=== PATIENT | male | born 1965 | race African-American/Black ===

== ENCOUNTER 2016-12-27 03:10 | Emergency (ER) | payer BC ==
[~2016-12-27] VITALS: Ht 180.3 cm; Wt 100.0 kg
[~2016-12-27 03:10] MED LIST: IBUP-232 PO; ROBIDM5S PO
[2016-12-27 03:12] VITALS: BP 152/95; PULSE 80; RESP 16; TEMP 97.8; O2SAT 98
[2016-12-27] MEDS ORDERED: TRAM50TA PO (04:50)
[2016-12-27 04:52] VITALS: BP 151/97
[2016-12-27] MEDS ORDERED: PERC5TAB12 PO (05:15)
[2016-12-27] MEDS ORDERED: oxyCODONE/ACETAMINOPHEN 5 MG/325 MG TAB PO ONE (05:15)
[2016-12-27] MEDS ORDERED: NAPR500 PO (05:15)
--- NOTE | 2016-12-27 05:19 | PD ---
HPI Chief Complaint: Injury Time Seen by Provider: 05:02 Travel History International Travel<30 days: No Contact w/Intl Traveler<30days: No Traveled to known affect area: No History of Present Illness HPI 51-year-old male who presents to emergency with complaints of left-sided knee pain for the past few weeks. He did follow-up with his primary care doctor last week and was told that he had arthritis to his left knee. Patient reports that his knee still hurts him and feels swollen. Patient with no fevers or chills, denies any injury to his left knee. PFSH Past Medical History Diminished Hearing: No Integumentary: Yes (PSORIASIS) Immunizations Current: Yes Tetanus Vaccination: < 5 Years Influenza Vaccination: No Past Surgical History Abdominal Surgery: Yes (hernia repair) Social History Alcohol Use: Yes (mostly weekends) Tobacco Use: No (never) Substance Use: No Allergies-Medications (Allergen,Severity, Reaction): Coded Allergies: Penicillin (Verified Allergy, Mild, fever/hives/welts, 12/27/16) Reported Meds & Prescriptions Reported Meds & Active Scripts Active Percocet (Oxycodone-Acetaminophen) 5-325 mg Tab 1 Tab PO Q6H PRN Naprosyn (Naproxen) 500 Mg Tab 500 Mg PO BID Reported Tramadol (Tramadol HCl) 50 Mg Tab 50 Mg PO Q6H PRN Review of Systems General / Constitutional: No: Fever Eyes: No: Visual changes HENT: No: Headaches Cardiovascular: No: Chest Pain or Discomfort Respiratory: No: Shortness of Breath Gastrointestinal: No: Abdominal Pain Genitourinary: No: Dysuria Musculoskeletal: Positive: Edema (left knee), Pain (left knee) Skin: No Rash Neurologic: No: Weakness Psychiatric: No: Depression Endocrine: No: Polydipsia Hematologic/Lymphatic: No: Easy Bruising Physical Exam Narrative GENERAL: nad, nontoxic SKIN: Focused skin assessment warm/dry. HEAD: Atraumatic. Normocephalic. EYES: Pupils equal and round. No scleral icterus. No injection or drainage. ENT: No nasal bleeding or discharge. Mucous membranes pink and moist. NECK: Trachea midline. No JVD. CARDIOVASCULAR: Regular rate and rhythm. No murmur appreciated. RESPIRATORY: No accessory muscle use. Clear to auscultation. Breath sounds equal bilaterally. GASTROINTESTINAL: Abdomen soft, non-tender, nondistended. Hepatic and splenic margins not palpable. MUSCULOSKELETAL: No obvious deformities. No clubbing. No cyanosis. mild effusion to left knee, no redness or erythema, no signs of infection, pulses intact, neurovascularly intact; RLE: normal exam NEUROLOGICAL: Awake and alert. No obvious cranial nerve deficits. Motor grossly within normal limits. Normal speech. PSYCHIATRIC: Appropriate mood and affect; insight and judgment normal. Data Data Last Documented VS Vital Signs Date Time Temp Pulse Resp B/P Pulse Ox O2 Delivery O2 Flow Rate FiO2 12/27/16 04:52 151/97 12/27/16 04:50 71 20 98 12/27/16 03:12 97.8 Orders Kevin Bandage (12/27/16 05:06) Oxycodone-Acetamin 5-325 Mg (Percocet (12/27/16 05:15) Ice/Cold Pack (12/27/16 05:06) MDM Medical Decision Making Medical Screen Exam Complete: Yes Emergency Medical Condition: Yes Interpretation(s) Vital Signs Date Time Temp Pulse Resp B/P Pulse Ox O2 Delivery O2 Flow Rate FiO2 12/27/16 04:52 151/97 12/27/16 04:50 71 20 98 12/27/16 03:12 97.8 80 16 152/95 98 Differential Diagnosis Differential includes arthritis, knee effusion, gout, septic bursitis though unlikely Narrative Course 51-year-old male who presents to emergency with complaints of left-sided knee pain for the past few weeks. He did follow-up with his primary care doctor last week and was told that he had arthritis to his left knee. Patient reports that his knee still hurts him and feels swollen. Patient with no fevers or chills, denies any injury to his left knee. On exam, patient appears to have an effusion to his left knee. There are no signs of infection/redness or warmth. He did have an xray of his knee performed by his pcp last week which showed arthritis. Denies any new injuries/ traumas/fall. Plan to treat with NSAIDS. Encouraged ice, rest and elevation. Patient follow up with orthopedic surgery return to emergency with his needed. Patient understands that he should not drive or operate heavy machinery while taking narcotic pain medications. Diagnosis Primary Impression: Knee effusion, left Additional Impression: Arthritis of knee, left Referrals: Macho Terry MD Patient Instructions: General Instructions, Narcotic given in the ED Additional Instructions: Please follow-up with primary care doctor in 2-3 days Please follow up with orthopedic surgery as soon as possible Do not drive or operate heavy machinery while taking narcotic pain medications. Return to emergency if symptoms worsen or progress Return to emergency room as needed Ice and elevate knee when at rest Med/Other Pt SpecificInfo: Prescription(s) given Scripts Oxycodone-Acetaminophen (Percocet)5-325 mg Tab1 Tab PO Q6H PRN (PAIN) #7 TAB Ref 0 Prov:Vikki Rogers DO 12/27/16 Naproxen (Naprosyn)500 Mg [id number] Mg PO BID #30 TAB Ref 0 Prov:Vikki Rogers DO 12/27/16 Disposition: 01 DISCHARGE HOME Condition: Stable Vikki Rogers DO Dec 27, 2016 05:19
== END 2016-12-27 05:51 | disposition home or self-care (01) ==
LOC: NEPC 03:10
DX: M25.461 Effusion, right knee (principal); M17.12 Unilateral primary osteoarthritis, left knee
CPT/HCPCS: 99283

== ENCOUNTER 2017-03-10 09:36 | Emergency (ER) | payer BC ==
[~2017-03-10] VITALS: Ht 180.3 cm; Wt 100.0 kg
[~2017-03-10 09:36] MED LIST changes: -IBUP-232 PO; +NAPR500 PO; +PERC5TAB12 PO; -ROBIDM5S PO; +TRAM50TA PO
[2017-03-10 09:38] VITALS: BP 135/91; PULSE 62; RESP 18; TEMP 98.8; O2SAT 98
--- NOTE | 2017-03-10 09:55 | PD ---
HPI Chief Complaint: Pain: Acute or Chronic Time Seen by Provider: 09:48 Travel History International Travel<30 days: No Contact w/Intl Traveler<30days: No Traveled to known affect area: No History of Present Illness HPI 51-year-old male with history of osteoarthritis presents to emergency department for evaluation of left knee pain with some moderate swelling. Patient states he noticed this worsening this morning. He has had this in the past and it resolved with NSAID therapy. He took one Advil this morning and it seemed to help some. Pain is an aching, constant pain. It was worse when he woke up this morning than it is now. Denies any injury. No fever chills. No other symptoms to report. History Past Medical Histgory Medical History: Denies Significant Hx Social History Alcohol Use: Yes (mostly weekends) Tobacco Use: No (never) Allergies-Medications (Allergen,Severity, Reaction): Coded Allergies: penicillin G (Unverified Allergy, Mild, fever/hives/welts, 03/10/17) Reported Meds & Prescriptions Reported Meds & Active Scripts Active Percocet (Oxycodone-Acetaminophen) 5-325 mg Tab 1 Tab PO Q6H PRN Naprosyn (Naproxen) 500 Mg Tab 500 Mg PO BID Reported Tramadol (Tramadol HCl) 50 Mg Tab 50 Mg PO Q6H PRN Review of Systems Except as stated in HPI: all other systems reviewed are Neg Physical Exam Narrative GENERAL: Well-nourished, well-developed male patient with an antalgic gait and in no acute distress. SKIN: Focused skin assessment warm/dry. HEAD: Normocephalic. EYES: No scleral icterus. No injection or drainage. NECK: Supple, trachea midline. No JVD or lymphadenopathy. CARDIOVASCULAR: Regular rate and rhythm without murmurs, gallops, or rubs. RESPIRATORY: Breath sounds equal bilaterally. No accessory muscle use. MUSCULOSKELETAL: No cyanosis. Very small palpable prepatellar effusion of the left knee. No erythema. No significant edema. Patient has full flexion- extension of the left knee. Distal pulses are palpable. Cap refill is within normal limits. BACK: Nontender without obvious deformity. No CVA tenderness. Data Data Last Documented VS Vital Signs Date Time Temp Pulse Resp B/P (MAP) Pulse Ox O2 Delivery O2 Flow Rate FiO2 03/10/17 09:38 98.8 62 18 135/91 (625) 98 Room Air MDM Medical Screen Exam Complete: Yes Emergency Medical Condition: No Differential Diagnosis L knee pain; osteoarthritis Narrative Course 51-year-old male presents to the emergency department for evaluation left knee pain and swelling. The knee is not significantly swollen. There is a palpable prepatellar effusion. The knee is not warm to touch. There are no limitations range of motion. With history of osteoarthritis and this happening in the past with also reported improving throughout the day, this is consistent with osteoarthritic pain. Patient has been sent home and I have encouraged him to take these as directed. This time there are no urgent or emergent needs medical intervention identified. A medical screening exam was performed: At the time of evaluation the presenting medical condition was determined not to be of an emergent nature. The patient was given the option of receiving additional care, but declined. Patient was given options for additional community resources from which to obtain care. The Patient Has Been advised to seek medical attention for their presenting complaint. The patient has been advised to return to the ER at any time if an emergent condition develops. Primary Impression: Encounter for medical screening examination Condition: Peyton Fry Mar 10, 2017 09:55
== END 2017-03-10 10:57 | disposition left against medical advice (07) ==
LOC: NEPK 09:36
DX: M25.562 Pain in left knee (principal)
CPT/HCPCS: 99281

== ENCOUNTER 2017-07-05 19:26 | Emergency (ER) | payer BC ==
[~2017-07-05] VITALS: Ht 180.3 cm; Wt 100.0 kg
[2017-07-05 19:27] VITALS: BP 143/79; PULSE 114; RESP 18; TEMP 100.8; O2SAT 97
[2017-07-05] MEDS ORDERED: SODIUM CHLORIDE 0.9% FLUSH 10 ML FLUSH IV FLUSH PRN (22:15)
[2017-07-05] MEDS ORDERED: ACETAMINOPHEN 325 MG TAB PO ONE (22:15)
[2017-07-05] MEDS ORDERED: SODIUM CHLOR 0.9% 1000 ML INJ 1,000 ML IV SCH (22:15)
--- NOTE | 2017-07-05 22:19 | PD ---
HPI Chief Complaint: Cold / Flu Symptoms Time Seen by Provider: 22:10 Travel History International Travel<30 days: No Contact w/Intl Traveler<30days: No Traveled to known affect area: No History of Present Illness HPI 52-year-old male here for evaluation of fever, cough, generalized malaise, sore throat, posterior headache. Symptoms started this morning. Cough is nonproductive. He took ibuprofen at around 6:30 PM today. He denies vomiting or diarrhea. No abdominal pain. PFSH Past Medical History Medical History: Denies Significant Hx Diminished Hearing: No Integumentary: Yes (PSORIASIS) Immunizations Current: Yes Past Surgical History Abdominal Surgery: Yes (hernia repair) Social History Alcohol Use: Yes (mostly weekends) Tobacco Use: No (never) Substance Use: No Allergies-Medications (Allergen,Severity, Reaction): Coded Allergies: penicillin G (Unverified Allergy, Mild, fever/hives/welts, 07/05/17) Reported Meds & Prescriptions Reported Meds & Active Scripts Active Percocet (Oxycodone-Acetaminophen) 5-325 mg Tab 1 Tab PO Q6H PRN Naprosyn (Naproxen) 500 Mg Tab 500 Mg PO BID Reported Tramadol (Tramadol HCl) 50 Mg Tab 50 Mg PO Q6H PRN Review of Systems Except as stated in HPI: all other systems reviewed are Neg Physical Exam Narrative GENERAL: Well-developed, well-nourished, comfortable, appears ill, no apparent distress. SKIN: Focused skin assessment warm/dry. No rash. HEAD: Atraumatic. Normocephalic. EYES: Pupils equal and round. No scleral icterus. No injection or drainage. ENT: No nasal bleeding or discharge. Mucous membranes pink and moist. NECK: Trachea midline. No JVD. No nuchal rigidity. CARDIOVASCULAR: Tachycardic, rate 110, regular. RESPIRATORY: No accessory muscle use. Clear to auscultation. Breath sounds equal bilaterally. GASTROINTESTINAL: Abdomen soft, non-tender, nondistended. MUSCULOSKELETAL: No obvious deformities. No clubbing. No cyanosis. No edema. NEUROLOGICAL: Awake and alert. No obvious cranial nerve deficits. Motor grossly within normal limits. Normal speech. PSYCHIATRIC: Appropriate mood and affect; insight and judgment normal. Data Data Last Documented VS Vital Signs Date Time Temp Pulse Resp B/P (MAP) Pulse Ox O2 Delivery O2 Flow Rate FiO2 1/28/18 23:37 98 Room Air 07/05/17 19:27 100.8 114 18 Orders Orders Complete Blood Count With Diff (07/05/17 22:15) Comprehensive Metabolic Panel (07/05/17 22:15) Prothrombin Time / Inr (Pt) (07/05/17 22:15) Act Partial Throm Time (Ptt) (07/05/17 22:15) Urinalysis - C+S If Indicated (07/05/17 22:15) Iv Access Insert/Monitor (07/05/17 22:15) Ecg Monitoring (07/05/17 22:15) Oximetry (07/05/17 22:15) Sodium Chlor 0.9% 1000 Ml Inj (Ns 1000 M (07/05/17 22:15) Sodium Chloride 0.9% Flush (Ns Flush) (07/05/17 22:15) Influenzae A/B Antigen (07/05/17 22:15) Acetaminophen (Tylenol) (07/05/17 22:15) Group A Rapid Strep Screen (07/05/17 22:18) Chest, Single Ap (07/05/17 ) Oseltamivir (Tamiflu) (07/05/17 23:15) Strep Culture (Group A) (07/05/17 22:23) Labs Laboratory Tests Test 07/05/17 22:30 White Blood Count 4.7 TH/MM3 Red Blood Count 4.50 MIL/MM3 Hemoglobin 12.9 GM/DL Hematocrit 38.4 % Mean Corpuscular Volume 85.3 FL Mean Corpuscular Hemoglobin 28.7 PG Mean Corpuscular Hemoglobin Concent 33.6 % Red Cell Distribution Width 14.5 % Platelet Count 183 TH/MM3 Mean Platelet Volume 8.6 FL Neutrophils (%) (Auto) 71.1 % Lymphocytes (%) (Auto) 14.5 % Monocytes (%) (Auto) 12.7 % Eosinophils (%) (Auto) 1.2 % Basophils (%) (Auto) 0.5 % Neutrophils # (Auto) 3.4 TH/MM3 Lymphocytes # (Auto) 0.7 TH/MM3 Monocytes # (Auto) 0.6 TH/MM3 Eosinophils # (Auto) 0.1 TH/MM3 Basophils # (Auto) 0.0 TH/MM3 CBC Comment DIFF FINAL Differential Comment Prothrombin Time 11.2 SEC Prothromb Time International Ratio 1.1 RATIO Activated Partial Thromboplast Time 26.3 SEC Blood Urea Nitrogen 11 MG/DL Creatinine 1.31 MG/DL Random Glucose 102 MG/DL Total Protein 7.5 GM/DL Albumin 3.8 GM/DL Calcium Level 8.8 MG/DL Alkaline Phosphatase 63 U/L Aspartate Amino Transf (AST/SGOT) 31 U/L Alanine Aminotransferase (ALT/SGPT) 44 U/L Total Bilirubin 0.5 MG/DL Sodium Level 138 MEQ/L Potassium Level 3.7 MEQ/L Chloride Level 103 MEQ/L Carbon Dioxide Level 27.4 MEQ/L Anion Gap 8 MEQ/L Estimat Glomerular Filtration Rate 70 ML/MIN [facility] Medical Decision Making Medical Screen Exam Complete: Yes Emergency Medical Condition: Yes Differential Diagnosis Influenza, URI, viral illness, strep pharyngitis, pneumonia, bronchitis Narrative Course Initial vital signs show heart rate 114, blood pressure 143/79, pulse ox 97% on room air, oral temp of 100.8F. Patient was given Tylenol, liter of normal saline IV, and repeat vital signs show heart rate 76 with an oral temp of 98.8F. CBC is essentially unremarkable. CMP is remarkable for creatinine 1.31, GFR 70, unknown baseline, otherwise unremarkable. Influenza is negative. Chest x-ray shows no acute disease. Patient was made aware of all findings. He is resting comfortably. Even though his flu swab was negative, his symptoms are consistent with the flu and he will be started on Tamiflu. He was advised to follow-up with a primary care physician this week. He was informed on when to return to the emergency department. He verbalizes understanding and agreement with plan. Diagnosis Primary Impression: Influenza-like illness Referrals: [facility] 3 days Additional Instructions: Follow-up with a primary care physician this week. Stay hydrated with plenty of fluids. Keep fever under control by alternating between Tylenol and ibuprofen every 3-4 hours as discussed. Return to the emergency department for worsening symptoms or any other concerns. Scripts Oseltamivir (Tamiflu) 75 Mg Cap 75 MG PO BID for Mgmt Viral Infection for 5 Days, #10 CAP 0 Refills Prov: Donal Jackson MD 07/05/17 Disposition: 01 DISCHARGE HOME Condition: Stable Donal Jackson MD Jul 05, 2017 22:19
[2017-07-05 22:53] LABS: AUTOMATED NEUTROPHIL # 3.4 TH/MM3 (1.8-7.7); BASOPHIL % 0.5 % (0.0-2.0); EOSINOPHIL # 0.1 TH/MM3 (0-0.4); EOSINOPHIL % 1.2 % (0.0-4.0); HEMATOCRIT 38.4 % (39.0-51.0); HEMOGLOBIN 12.9 GM/DL (13.0-17.0); LYMPH % 14.5 % (9.0-44.0); LYMPHOCYTE # 0.7 TH/MM3 (1.0-4.8); MEAN CELL VOLUME 85.3 FL (80.0-100.0); MEAN CORPUSCULAR HEMOGLOBIN 28.7 PG (27.0-34.0); MEAN CORPUSCULAR HGB CONC 33.6 % (32.0-36.0); MEAN PLATELET VOLUME 8.6 FL (7.0-11.0); MONO % 12.7 % (0.0-8.0); MONOCYTE # 0.6 TH/MM3 (0-0.9); NEUT % 71.1 % (16.0-70.0); PLATELET COUNT 183 TH/MM3 (150-450); RED CELL DISTRIBUTION WIDTH 14.5 % (11.6-17.2); WHITE BLOOD COUNT 4.7 TH/MM3 (4.0-11.0)
[2017-07-05 23:02] LABS: INTERNATIONAL NORMALIZED RATIO 1.1 RATIO; PROTHROMBIN TIME - PATIENT 11.2 SEC (9.8-11.6)
[2017-07-05 23:09] LABS: ALBUMIN 3.8 GM/DL (3.4-5.0); AST (GOT) 31 U/L (15-37); BICARBONATE 27.4 MEQ/L (21.0-32.0); BLOOD UREA NITROGEN 11 MG/DL (7-18); CALCIUM 8.8 MG/DL (8.5-10.1); CHLORIDE 103 MEQ/L (98-107); CREATININE 1.31 MG/DL (0.60-1.30); GLOMERULAR FILTRATION RATE 70 ML/MIN (>89); GLUCOSE,RANDOM 102 MG/DL (74-106); SODIUM (NA) 138 MEQ/L (136-145)
[2017-07-05 23:10] LABS: ALT (GPT) 44 U/L (12-78)
[2017-07-05 23:12] LABS: ALKALINE PHOSPHATASE 63 U/L (45-117); TOTAL BILIRUBIN ADULT 0.5 MG/DL (0.2-1.0); TOTAL PROTEIN 7.5 GM/DL (6.4-8.2)
[2017-07-05] MEDS ORDERED: OSELTAMIVIR PHOSPHATE 75 MG CAP PO ONE (23:15)
--- NOTE | 2017-07-05 23:24 | RADRPT ---
EXAM DATE/TIME: 07/05/2017 23:02 [facility] COMPARISON: No previous studies available for comparison. INDICATIONS : Cough, sore throat, and weakness since this morning. MEDICAL HISTORY : None. SURGICAL HISTORY : None. ENCOUNTER: Initial ACUITY: 1 day PAIN SCORE: 8/10 LOCATION: Bilateral chest FINDINGS: A single view of the chest demonstrates the lungs to be symmetrically aerated without evidence of mas s, infiltrate or effusion. The cardiomediastinal contours are unremarkable. Osseous structures are intact. CONCLUSION: No acute disease. Fab Aguilar MD on July 05, 2017 at 23:21 Board Certified Radiologist. This report was verified electronically.
[2017-07-05 23:37] VITALS: O2SAT 98
[2017-07-05 23:40] VITALS: PULSE 76; RESP 16; TEMP 98.8; O2SAT 98
[2017-07-05] MEDS ORDERED: OSEL75 PO (23:42)
== END 2017-07-05 23:55 | disposition home or self-care (01) ==
LOC: NEPD 19:26
DX: J11.1 Influenza due to unidentified influenza virus with other respiratory manifestations (principal); R53.1 Weakness
CPT/HCPCS: 71045; 80053; 85025; 85610; 85730; 87081; 87804; 87880; 96360; 99284; J7030

== ENCOUNTER 2017-07-07 06:36 | Emergency (ER) | payer BC ==
[~2017-07-07] VITALS: Ht 180.3 cm; Wt 100.0 kg
[~2017-07-07 06:36] MED LIST changes: +OSEL75 PO
[2017-07-07 06:39] VITALS: BP 140/83; PULSE 84; RESP 16; TEMP 101.8; O2SAT 95
--- NOTE | 2017-07-07 07:10 | PD ---
HPI Chief Complaint: Cold / Flu Symptoms Time Seen by Provider: 07:06 Travel History International Travel<30 days: No Contact w/Intl Traveler<30days: No Traveled to known affect area: No History of Present Illness HPI 52-year-old male with history of fever, body ache and pain. Patient's temperature was 101.5 at triage. He says he took ibuprofen at 3 in the morning. Patient was in the emergency room 2 days ago for the exact symptoms and he was given Tamiflu even though his influenza was negative. Patient says his throat hurts too. No history of vomiting or diarrhea. Patient is not a smoker and he is otherwise a healthy person. PFSH Past Medical History Narrative Medical List of his past medical, surgical, social and family history is reviewed from the nursing note. Diminished Hearing: No Integumentary: Yes (PSORIASIS) Immunizations Current: Yes Past Surgical History Abdominal Surgery: Yes (hernia repair) Social History Alcohol Use: Yes (mostly weekends) Tobacco Use: No (never) Substance Use: No Allergies-Medications (Allergen,Severity, Reaction): Coded Allergies: penicillin G (Verified Allergy, Severe, fever/hives/welts, 07/07/17) Comments List of his allergies reviewed from the nursing note. Reported Meds & Prescriptions Reported Meds & Active Scripts Active Zithromax Z-Edward (Azithromycin) 250 Mg Dspk 250 Mg PO DIRECTED 500 MG (2 tabs) day 1, then 1 tab days 2-5. Tamiflu (Oseltamivir Phosphate) 75 Mg Cap 75 Mg PO BID 5 Days Percocet (Oxycodone-Acetaminophen) 5-325 mg Tab 1 Tab PO Q6H PRN Naprosyn (Naproxen) 500 Mg Tab 500 Mg PO BID Reported Tramadol (Tramadol HCl) 50 Mg Tab 50 Mg PO Q6H PRN Narrative Medication List of his home medications reviewed from the nursing note. Review of Systems Except as stated in HPI: all other systems reviewed are Neg General / Constitutional: Positive: Fever, Chills HENT: Positive: Sore Throat Respiratory: Positive: Cough Musculoskeletal: Positive: Myalgias Physical Exam Narrative GENERAL: Awake, alert, moderate distress SKIN: Focused skin assessment warm/dry. HEAD: Atraumatic. Normocephalic. EYES: Pupils equal and round. No scleral icterus. No injection or drainage. ENT: No nasal bleeding or discharge. Mucous membranes pink and moist. Pharynx is erythematous with no exudates NECK: Trachea midline. No JVD. CARDIOVASCULAR: Regular rate and rhythm. No murmur appreciated. RESPIRATORY: No accessory muscle use. Clear to auscultation. Breath sounds equal bilaterally. GASTROINTESTINAL: Abdomen soft, non-tender, nondistended. Hepatic and splenic margins not palpable. MUSCULOSKELETAL: No obvious deformities. No clubbing. No cyanosis. No edema. NEUROLOGICAL: Awake and alert. No obvious cranial nerve deficits. Motor grossly within normal limits. Normal speech. PSYCHIATRIC: Appropriate mood and affect; insight and judgment normal. Data Data Last Documented VS Vital Signs Date Time Temp Pulse Resp B/P (MAP) Pulse Ox O2 Delivery O2 Flow Rate FiO2 07/07/17 08:40 98.4 78 16 124/81 (95) 99 07/07/17 07:00 Room Air Orders Orders Acetaminophen (Tylenol) (07/07/17 07:15) Dexamethasone (Decadron) (07/07/17 07:15) Group A Rapid Strep Screen (07/07/17 07:15) Chest, Pa & Lat (07/07/17 ) Strep Culture (Group A) (07/07/17 07:10) Ed Discharge Order (07/07/17 08:21) MDM Medical Decision Making Medical Screen Exam Complete: Yes Emergency Medical Condition: Yes Medical Record Reviewed: Yes Differential Diagnosis Strep throat, viral illness, pneumonia Narrative Course A 20 9 AM strep throat is negative and chest x-ray shows some atelectasis. Given patient's symptoms I have decided to send him home on a Z-Edward. He was given Tylenol for his fever here and dexamethasone for his throat swelling. Procedures EKG Prior to Arrival: No Diagnosis Primary Impression: Viral illness Additional Impression: Atypical pneumonia Referrals: Primary Care Physician Departure Forms: Tests/Procedures, Work Release Enter return to work date: Jul 09, 2017 Additional Instructions: Please return to the ER if the condition worsens or any other new concerns. Take the medication as per the prescription direction. Drink lots of fluids. Take Tylenol/Motrin/Advil/ibuprofen for fever and/or pain. Med/Other Pt SpecificInfo: Prescription(s) given Scripts Azithromycin (Zithromax Z-Edward) 250 Mg Dspk 250 MG PO DIRECTED for Infection, #1 DSPK 0 Refills 500 MG (2 tabs) day 1, then 1 tab days 2-5. Prov: Jamey Gonzales MD 07/07/17 Disposition: 01 DISCHARGE HOME Condition: Stable Jamey Gonzales MD Jul 07, 2017 07:10
[2017-07-07] MEDS ORDERED: DEXAMETHASONE 6 MG TAB PO ONE (07:15)
[2017-07-07] MEDS ORDERED: ACETAMINOPHEN 325 MG TAB PO ONE (07:15)
--- NOTE | 2017-07-07 08:08 | RADRPT ---
EXAM DATE/TIME: 07/07/2017 07:52 [facility] COMPARISON: No previous studies available for comparison. INDICATIONS : Cough. Sore throat. Body aches. MEDICAL HISTORY : Psoriasis. SURGICAL HISTORY : None. ENCOUNTER: Subsequent ACUITY: 3 days PAIN SCORE: 2/10 LOCATION: back, legs FINDINGS: PA and lateral views of the chest demonstrate minimal right basilar subsegmental atelectasis without evidence of mass, infiltrate or effusion. The cardiomediastinal contours are unremarkable. Osseous structures are intact. CONCLUSION: Minimal right basilar subsegmental atelectasis. Ted Horan MD on July 07, 2017 at 8:05 Board Certified Radiologist. This report was verified electronically.
[2017-07-07] MEDS ORDERED: ZITHTAB PO (08:15)
[2017-07-07 08:40] VITALS: BP 124/81; TEMP 98.4
== END 2017-07-07 10:06 | disposition home or self-care (01) ==
LOC: NEPC 06:36
DX: B34.9 Viral infection, unspecified (principal); J18.9 Pneumonia, unspecified organism
CPT/HCPCS: 71046; 87081; 87880; 99284; J8540

== ENCOUNTER 2017-07-08 09:43 | Emergency (ER) | payer BC ==
[~2017-07-08] VITALS: Ht 180.3 cm; Wt 100.0 kg
[~2017-07-08 09:43] MED LIST changes: +ZITHTAB PO
[2017-07-08 09:44] VITALS: BP 129/90; PULSE 67; RESP 16; TEMP 98.1; O2SAT 100
--- NOTE | 2017-07-08 10:26 | PD ---
HPI Chief Complaint: Medical Clearance Time Seen by Provider: 10:02 Travel History International Travel<30 days: No Contact w/Intl Traveler<30days: No Traveled to known affect area: No History of Present Illness HPI Patient 52-year-old male presents emergency department for consideration of a work excuse. Patient has been seen here recently twice initially diagnosed with influenza is been placed on Tamiflu, subsequently placed on azithromycin by another provider. Patient states his symptoms are not getting better but he needs a work note nor did miss work not lose his job. No chest pain or soreness breath abdominal pain nausea vomiting. Symptoms for the past week, gradually improving, associated signs symptoms and context as above. PFSH Past Medical History Diminished Hearing: No Integumentary: Yes (PSORIASIS) Immunizations Current: Yes Past Surgical History Abdominal Surgery: Yes (hernia repair) Social History Alcohol Use: Yes (mostly weekends) Tobacco Use: No (never) Substance Use: No Allergies-Medications (Allergen,Severity, Reaction): Coded Allergies: penicillin G (Verified Allergy, Severe, fever/hives/welts, 07/07/17) Reported Meds & Prescriptions Reported Meds & Active Scripts Active Zithromax Z-Edward (Azithromycin) 250 Mg Dspk 250 Mg PO DIRECTED 500 MG (2 tabs) day 1, then 1 tab days 2-5. Tamiflu (Oseltamivir Phosphate) 75 Mg Cap 75 Mg PO BID 5 Days Percocet (Oxycodone-Acetaminophen) 5-325 mg Tab 1 Tab PO Q6H PRN Naprosyn (Naproxen) 500 Mg Tab 500 Mg PO BID Reported Tramadol (Tramadol HCl) 50 Mg Tab 50 Mg PO Q6H PRN Review of Systems Except as stated in HPI: all other systems reviewed are Neg Physical Exam Narrative GENERAL: Well-nourished, well-developed patient. SKIN: Focused skin assessment warm/dry. HEAD: Normocephalic. EYES: No scleral icterus. No injection or drainage. ENT: TMs clear bilaterally, clear and moist NECK: Supple, trachea midline. No JVD or lymphadenopathy. CARDIOVASCULAR: Regular rate and rhythm without murmurs, gallops, or rubs. RESPIRATORY: Breath sounds equal bilaterally. No accessory muscle use. GASTROINTESTINAL: Abdomen soft, non-tender, nondistended. MUSCULOSKELETAL: No cyanosis, or edema. BACK: Nontender without obvious deformity. No CVA tenderness. Data Data Last Documented VS Vital Signs Date Time Temp Pulse Resp B/P (MAP) Pulse Ox O2 Delivery O2 Flow Rate FiO2 07/08/17 09:44 98.1 67 16 129/90 (103) 100 Room Air Orders Orders Ed Discharge Order (07/08/17 10:28) MDM Medical Decision Making Medical Screen Exam Complete: Yes Emergency Medical Condition: Yes Differential Diagnosis URI, pneumonia, influenza Narrative Course No indication further workup in the emergency department, work note given as requested. He is stable for discharge. Diagnosis Primary Impression: URI (upper respiratory infection) Departure Forms: Tests/Procedures, Work Release Enter return to work date: Jul 12, 2017 Disposition: 01 DISCHARGE HOME Condition: Stable Joel Bray MD Jul 08, 2017 10:26
== END 2017-07-08 10:44 | disposition home or self-care (01) ==
LOC: NEPD 09:43
DX: J06.9 Acute upper respiratory infection, unspecified (principal)
CPT/HCPCS: 99281

== ENCOUNTER 2017-10-12 07:34 | Emergency (ER) | payer BC ==
[~2017-10-12] VITALS: Ht 180.3 cm; Wt 100.0 kg
[2017-10-12 07:36] VITALS: BP 157/89; PULSE 84; RESP 16; TEMP 98.6; O2SAT 98
[2017-10-12] MEDS ORDERED: BACL10TA PO (08:13)
[2017-10-12] MEDS ORDERED: DICL50TA PO (08:13)
--- NOTE | 2017-10-12 08:14 | PD ---
HPI Chief Complaint: Back/ Neck Pain or Injury Time Seen by Provider: 08:04 Travel History International Travel<30 days: No Contact w/Intl Traveler<30days: No Traveled to known affect area: No History of Present Illness HPI The patient is 52 years old and arrives to the ER with a complaint of neck pain. He has had it for 2 weeks now. It comes and goes. Initially Advil was helpful. It started around midnight tonight, 8 hours prior and has been severe since. 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 He has no numbness tingling. No loss of consciousness. No fever. PFSH Past Medical History Diminished Hearing: No Integumentary: Yes (PSORIASIS) Immunizations Current: Yes Past Surgical History Abdominal Surgery: Yes (hernia repair) Social History Alcohol Use: Yes (mostly weekends) Tobacco Use: No (never) Substance Use: No Allergies-Medications (Allergen,Severity, Reaction): Coded Allergies: penicillin G (Verified Allergy, Severe, fever/hives/welts, 10/12/17) Reported Meds & Prescriptions Reported Meds & Active Scripts Active Baclofen 10 Mg Tab 10 Mg PO TID 10 Days Diclofenac Potassium 50 Mg Tab 50 Mg PO TID Zithromax Z-Edward (Azithromycin) 250 Mg Dspk 250 Mg PO DIRECTED 500 MG (2 tabs) day 1, then 1 tab days 2-5. Tamiflu (Oseltamivir Phosphate) 75 Mg Cap 75 Mg PO BID 5 Days Percocet (Oxycodone-Acetaminophen) 5-325 mg Tab 1 Tab PO Q6H PRN Naprosyn (Naproxen) 500 Mg Tab 500 Mg PO BID Reported Tramadol (Tramadol HCl) 50 Mg Tab 50 Mg PO Q6H PRN Review of Systems General / Constitutional: No: Fever Neurologic: No: Weakness, Dizziness, Syncope Physical Exam Narrative GENERAL: 52-year-old male well-nourished well-developed mild distress secondary to pain Vital Signs Date Time Temp Pulse Resp B/P (MAP) Pulse Ox O2 Delivery O2 Flow Rate FiO2 10/12/17 07:36 98.6 84 16 157/89 (111) 98 SKIN: Warm and dry. HEAD: Normocephalic. EYES: No scleral icterus. No injection or drainage. NECK: Supple, trachea midline. No JVD or lymphadenopathy. Range of motion is normal. Neck is supple. There is no focal C-spine tenderness. The handgrip is equal bilaterally. The patient is ambulatory. CARDIOVASCULAR: Regular rate and rhythm without murmurs, gallops, or rubs. RESPIRATORY: Breath sounds equal bilaterally. No accessory muscle use. GASTROINTESTINAL: Abdomen soft, non-tender, nondistended. MUSCULOSKELETAL: No cyanosis, or edema. BACK: Nontender without obvious deformity. No CVA tenderness. Data Data Last Documented VS Vital Signs Date Time Temp Pulse Resp B/P (MAP) Pulse Ox O2 Delivery O2 Flow Rate FiO2 10/12/17 07:36 98.6 84 16 157/89 (111) 98 Orders Orders Acetamin-Hydrocod 325-5 Mg (Powderly 5-325 (10/12/17 08:15) Ed Discharge Order (10/12/17 08:29) [facility] Medical Decision Making Medical Screen Exam Complete: Yes Emergency Medical Condition: Yes Medical Record Reviewed: Yes Differential Diagnosis Arthritis, epidural abscess, torticollis Narrative Course Lortab given here. Diclofenac baclofen stress. Work note provided. Diagnosis Primary Impression: Neck strain Qualified Codes: S16.1XXA - Strain of muscle, fascia and tendon at neck level , initial encounter Referrals: Primary Care Physician call for appointment Med/Other Pt SpecificInfo: Prescription(s) given Scripts Baclofen (Baclofen) 10 Mg Tab 10 MG PO TID for 10 Days, #20 TAB 0 Refills Prov: Marcos Garcia MD 10/12/17 Diclofenac Potassium (Diclofenac Potassium) 50 Mg Tab 50 MG PO TID, #30 TAB 0 Refills Prov: Marcos Garcia MD 10/12/17 Disposition: 01 DISCHARGE HOME Condition: Stable Marcos Garcia MD October 12, 2017 08:14
[2017-10-12] MEDS ORDERED: ACETAMINOPHEN/HYDROcodone 325 MG/5 MG TAB PO ONE (08:15)
[2017-10-12 09:04] VITALS: BP 149/78
== END 2017-10-12 09:05 | disposition home or self-care (01) ==
LOC: NEPC 07:34
DX: S16.1XXA Strain of muscle, fascia and tendon at neck level, initial encounter (principal); X50.9XXA Other and unspecified overexertion or strenuous movements or postures, initial encounter; Y93.89 Activity, other specified; Y99.0 Civilian activity done for income or pay
CPT/HCPCS: 99283